=== PATIENT | female | born 1980 | race Caucasian/White ===

== ENCOUNTER 2019-03-31 07:54 | Emergency (ER) | payer MEDICAID ==
[~2019-03-31] VITALS: Ht 167.6 cm; Wt 59.0 kg
[2019-03-31 08:00] VITALS: BP 125/80
[2019-03-31] MEDS ORDERED: LIDOCAINE W/ EPINEPHRINE 2% INJ 20ML VIAL IJ ONE (09:00)
[2019-03-31] MEDS ORDERED: KETOROLAC TROMETH 30 MG/ML 1ML VIAL IV ONE (09:30)
[2019-03-31] MEDS ORDERED: cefTRIAXone 1GM/50ML D5W 50 ML IV ONE (09:30)
== END 2019-03-31 10:08 | disposition left against medical advice (07) ==
LOC: ER 07:58
DX: L02.413 Cutaneous abscess of right upper limb (principal); F17.210 Nicotine dependence, cigarettes, uncomplicated; G43.909 Migraine, unspecified, not intractable, without status migrainosus
CPT/HCPCS: 10060; 87205

== ENCOUNTER 2022-04-21 08:41 | Emergency (ER) | payer MEDICAID ==
[~2022-04-21] VITALS: Ht 165.1 cm; Wt 63.5 kg
[2022-04-21] MEDS ORDERED: LIDOCAINE 1% HCL (LOCAL ANESTH.) INJ 20ML MDV IJ ONE (09:00)
[2022-04-21] MEDS ORDERED: cefTRIAXone SOD 1,000 MG VL IM ONE (09:00)
[2022-04-21] MEDS ORDERED: IBUP800T27 PO (09:09)
[2022-04-21] MEDS ORDERED: SULF400T11 PO (09:09)
[2022-04-21 09:19] VITALS: BP 128/83
== END 2022-04-21 09:22 | disposition home or self-care (01) ==
LOC: ER 08:41
DX: L02.211 Cutaneous abscess of abdominal wall (principal); F17.210 Nicotine dependence, cigarettes, uncomplicated; Z79.1 Long term (current) use of non-steroidal anti-inflammatories (NSAID); Z79.899 Other long term (current) drug therapy
CPT/HCPCS: 10060; 87205; 96372; 99283; J0696; 87077; 87186

== ENCOUNTER 2023-04-03 08:01 | Emergency (ER) | payer MEDICAID ==
[~2023-04-03] VITALS: Ht 165.1 cm; Wt 67.4 kg
[~2023-04-03 08:01] MED LIST: IBUP800T27 PO; SULF400T11 PO
[2023-04-03 08:26] VITALS: BP 143/89
[2023-04-03] MEDS ORDERED: HYDROcodone-ACET 5/325MG TAB PO ONE (08:45)
[2023-04-03] MEDS ORDERED: METH750T22 PO (09:42)
[2023-04-03] MEDS ORDERED: IBUP800T27 PO (09:42)
== END 2023-04-03 09:53 | disposition home or self-care (01) ==
LOC: ER 08:01
DX: S93.401A Sprain of unspecified ligament of right ankle, initial encounter (principal); S39.012A Strain of muscle, fascia and tendon of lower back, initial encounter; F17.210 Nicotine dependence, cigarettes, uncomplicated; F12.10 Cannabis abuse, uncomplicated; F19.10 Other psychoactive substance abuse, uncomplicated; W01.0XXA Fall on same level from slipping, tripping and stumbling without subsequent striking against object, initial encounter; Y93.01 Activity, walking, marching and hiking; Y92.89 Other specified places as the place of occurrence of the external cause; Y99.8 Other external cause status
CPT/HCPCS: 72100; 73610

== ENCOUNTER 2023-05-12 00:09 | Emergency (ER) | payer MEDICAID ==
[~2023-05-12] VITALS: Ht 167.6 cm; Wt 67.3 kg
[~2023-05-12 00:09] MED LIST changes: +IBUP-1456 PO; -IBUP800T27 PO; +METH-1182 PO
[2023-05-12 00:30] VITALS: BP 139/62
== END 2023-05-12 06:47 | disposition left against medical advice (07) ==
LOC: ER 00:09
DX: S71.151D Open bite, right thigh, subsequent encounter (principal); Z53.21 Procedure and treatment not carried out due to patient leaving prior to being seen by health care provider; W54.0XXD Bitten by dog, subsequent encounter